=== PATIENT | female | born 1985 | race Caucasian/White ===

== ENCOUNTER 2016-12-15 11:53 | Emergency (ER) | payer OTHER ==
--- NOTE | ~2016-12-15 | CR142 ---
[facility] A Service of [facility] & [facility] RADIOLOGY TEXT RESULTS PATIENT: DOLLY GARCIA LOCATION: CFTX : 83 UNIT #: [id number] AGE: [address]: Leda Laguna SEX: F ORDER DR: [id number] [facility] [address] [place], [place] [address] [id number] E MR#: [id number] Acc #: [id number] NAME: DOLLY GARCIA : 1985 SEX: F STUDY DATE/TIME: 12/15/2016 11:46 UNIT: [facility] ROOM: STUDY DESCRIPTION: CR Hand Min 3 Views Rt Attending Physician: Leda Laguna P.A.-C. Ordering Physician: Leda Laguna P.A.-C. [facility] REPORT This report is preliminary unless electronic signature is present EXAM Right hand series dated 12/15/2016 COMPARISON None. HISTORY Fell yesterday. Right hand pain and swelling with small laceration in the back of the hand. FINDINGS 3 views of the right hand were obtained. Laceration to the back of the hand is difficult to visualize. No radiopaque foreign body is seen. Visualized bones are within normal limits. No acute displaced fracture or dislocation. Dictated by... Concetta Rodriguez M.D. THIS IS AN ELECTRONICALLY VERIFIED REPORT Concetta Rodriguez M.D. at 12/16/2016 3:21 PM CPR/aa TD: 12/15/2016 14:05 JOB #: [id number] MEDICAL IMAGING REPORT Page 1 of 1 COPY
[~2016-12-15 11:53] MED LIST: ALBUTEROL MININEB NEB; ALBUTEROL17 GM INH; AMOXIL500 MG PO; BACTRIM DS TABL1 TA1 PO; E-MYCIN250 MG PO; EC-NAPROSYN500 MG PO; IBUPROFEN PO; KEFLEX500 MG PO; LORTAB 7.5-5001 TAB PO; MEDROL PO; NO MEDICATIONS; PEN-VEE K PO; PHENERGAN25 M1 DOB; PRENATAL MULITV1 TAB PO; PRENATAL VITAMI1 TA3 PO; PYRIDIUM PO; ULTRAM PO
== END 2016-12-15 12:30 | disposition home or self-care (01) ==
LOC: CFTX 11:53
DX: S61.411A Laceration without foreign body of right hand, initial encounter (principal); J45.909 Unspecified asthma, uncomplicated; F17.210 Nicotine dependence, cigarettes, uncomplicated; W01.198A Fall on same level from slipping, tripping and stumbling with subsequent striking against other object, initial encounter; Y92.007 Garden or yard of unspecified non-institutional (private) residence as the place of occurrence of the external cause
CPT/HCPCS: 29280; 73130; 99283

== ENCOUNTER 2017-04-08 04:47 | Emergency (ER) | payer OTHER ==
[~2017-04-08] VITALS: Ht 160 cm; Wt 54.4 kg
[2017-04-08] MEDS ORDERED: ALBUTEROL17 GM INH (04:52)
== END 2017-04-08 05:32 | disposition home or self-care (01) ==
LOC: SED 04:47
DX: S81.812A Laceration without foreign body, left lower leg, initial encounter (principal); J45.909 Unspecified asthma, uncomplicated; Z90.49 Acquired absence of other specified parts of digestive tract; W45.8XXA Other foreign body or object entering through skin, initial encounter; Y92.410 Unspecified street and highway as the place of occurrence of the external cause
CPT/HCPCS: 12002; 99283

== ENCOUNTER 2017-04-11 19:06 | Emergency (ER) | payer OTHER ==
[~2017-04-11] VITALS: Ht 157.5 cm; Wt 54.4 kg
== END 2017-04-11 20:03 | disposition home or self-care (01) ==
LOC: CED 19:06 → CFTX 19:06
DX: S81.812D Laceration without foreign body, left lower leg, subsequent encounter (principal); J45.909 Unspecified asthma, uncomplicated; F17.210 Nicotine dependence, cigarettes, uncomplicated; X58.XXXD Exposure to other specified factors, subsequent encounter
CPT/HCPCS: 99282